=== PATIENT | female | born 1965 | race Caucasian/White ===

== ENCOUNTER → 2020-07-18 16:49 | Outpatient (CLI) | payer OTHER, SELFPAY ==
[2020-07-18 15:57] VITALS: BMI 32.4
[2020-07-18 18:19] LABS: Anion Gap 8 (5-15); BUN 15 mg/dL (7-18); BUN/Creat Ratio 20.9 RATIO (10-20); Calcium,Total 9.5 mg/dL (8.5-10.1); Chloride 101 mmol/L (98-107); Cholesterol 188 mg/dL (200); Creatinine, Serum 0.72 mg/dL (0.55-1.02); EST Glomerular Filtration Rate 90 mL/min (>60); Est Glom Filt Rate - Afr Amer 109 mL/min (>60); Glucose 92 mg/dL (74-106); High Density Lipoprotein 72 mg/dL; Potassium 3.4 mmol/L (3.5-5.1); Sodium Level 140 mmol/L (136-145); Triglycerides 59 mg/dL; Very Low Density Lipoprotein 12 mg/dL (5-40)
== END ==
PROVIDERS: PCP Family Medicine; Referring Provider Family Medicine; Visit Provider Family Medicine
DX: R06.00 Dyspnea, unspecified (principal)
CPT/HCPCS: 36415; 80048; 80061

== ENCOUNTER → 2020-07-26 13:16 | Outpatient (CLI) | payer SELFPAY, OTHER ==
[2020-07-18 15:57] VITALS: BMI 32.4
--- NOTE | 2020-07-26 13:17 | STE_ITS ---
Reason For Study: DYSPNEA/SOB Stress Results Protocol: Edwar Protocol Maximum Predicted HR: 166 bpm Target HR: 141 bpm % Maximum Predicted HR: 90 % DurationHeart Rate Stage (mm:ss) (bpm) BP Baseline 67 126/80 STAGE 1 3:00 118 174/84 STAGE 2 3:00 125 162/80 STAGE 3 3:00 150 196/84 RECOVERY 86 138/82 Stress Duration: 9:00 mm:ss Maximum Stress HR: 150 bpm Baseline Echocardiogram Findings Stress Echo Wall motion Data Resting WM Intermediate WM Stress WM ECHO/Stress Test Echo w/o Contrast Interpretation Summary Exercise stress echo. 54-year-old lady with a history of shortness of breath. Stress protocol: Resting KG demonstrates normal sinus rhythm with a rate of 67 bpm normal interv als are noted resting blood pressure 126/80 mmHg. The patient exercised according to the regular Bru[facility] e protocol for a total duration of 9 minutes patient completed stage III of the Edwar protocol. The maximum heart rate attained was 150 bpm which was 90% of max impacted heart rate the maximum workload was 10.1 metabolic equivalents. At rest there were no ST or T wave changes noted to sugg est ischemia and at peak exercise upsloping changes were noted. The test was terminated due to targ et heart rate being achieved and dyspnea. The peak blood pressure was 196/84 mmHg which was normal blood pressure response to exercise. Stress echocardiogram. The resting echocardiographic evaluation demonstrated an ejection fraction of 5 5%. The patient exercised according to the Edwar protocol and at peak exercise the estimated ej ection fraction was 65% with no wall motion abnormalities present. No ischemia was noted. Conclusion: Normal exercise stress echo with no evidence of ischemia at a high workload. Good functional aerobic capacity noted. Ordering Physician: Issac Bartholomew Referring Physician: Issac Bartholomew Performed By: Vivi Portillo RDCS
== END ==
PROVIDERS: PCP Family Medicine; Referring Provider Family Medicine; Visit Provider Family Medicine
DX: R06.00 Dyspnea, unspecified (principal)
CPT/HCPCS: 93017; 93350

== ENCOUNTER → 2024-02-03 | Outpatient (CLI) | payer OTHER, SELFPAY ==
[2024-02-03 15:18] LABS: Hematocrit 39.5 % (37-47); Hemoglobin 13.3 g/dL (12.0-15.0); Mean Corp Hgb Conc 33.7 g/dL (32-36); Mean Corpuscular Hgb 32.4 pg (27.0-32.0); Mean Corpuscular Volume 96.1 fL (81-99); Mean Platelet Vol. 9.9 fl (6.2-12.0); Platelet Count 214 K/mm3 (150-450); RBC Distribution Width CV 12.4 % (11.6-14.6); RBC Distribution Width SD 43.8 fl (35.1-43.9); Red Blood Count 4.11 M/mm3 (4.2-5.4); White Blood Count 4.2 K/mm3 (4.4-11.0)
[2024-02-03 15:39] LABS: Anion Gap 6 (5-15); BUN 10 mg/dL (7-18); BUN/Creat Ratio 14.3 RATIO (10-20); Calcium,Total 9.5 mg/dL (8.5-10.1); Chloride 106 mmol/L (98-107); EST Glomerular Filtration Rate 91 mL/min (>60); Est Glom Filt Rate - Afr Amer 110 mL/min (>60); Glucose 99 mg/dL (74-106); Potassium 4.1 mmol/L (3.5-5.1); Sodium Level 140 mmol/L (136-145)
== END | disposition home or self-care (01) ==
LOC: BIMLAB 11:38
PROVIDERS: PCP Family Medicine; Referring Provider Family Medicine; Visit Provider Family Medicine
DX: Z00.00 Encounter for general adult medical examination without abnormal findings (principal)
CPT/HCPCS: 36415; 80048; 85027